=== PATIENT | male | born 1950 | race Caucasian/White ===

== ENCOUNTER → 2025-09-06 13:26 | Outpatient (REF) | payer OTHER, SELFPAY | LOC: HWRCS 13:26 | PROVIDERS: ATTENDING PHYSICIAN Internal Medicine; FAMILY PHYSICIAN Internal Medicine | DX: I25.10 Atherosclerotic heart disease of native coronary artery without angina pectoris (principal); I35.0 Nonrheumatic aortic (valve) stenosis | CPT/HCPCS: 93306 ==